=== PATIENT | female | born 1985 | race Two or more races ===

== ENCOUNTER 2018-12-01 21:04 | Emergency (ER) | payer OTHER ==
[2018-12-01 21:28] VITALS: BP 122/70; PULSE 96; TEMP 99.3; BMI 36.1
[2018-12-01] MEDS ORDERED: DIPHTH,PERTUSS(ACELL),TET 0.5 ML DISP.SYRIN IM ONE ×2 (21:31→21:32)
[2018-12-01] MEDS ORDERED: SILVER SULFADIAZINE 1% TOP CREAM 50 GM JAR TP ONE (21:37)
--- NOTE | 2018-12-01 23:56 | PDOC ---
Documentation entered by Betsy Mcgarry SCRIBE, acting as scribe for Anai Bravo MD. Anai Bravo MD: This documentation has been prepared by the scribe, Betsy Mcgarry SCRIBE, under my direction and personally reviewed by me in its entirety. I confirm that the documentation accurately reflects all work, treatment, procedures, and medical decision making performed by me. History of Present Illness - General Chief Complaint: Burn Stated Complaint: BURN History Source: Patient Exam Limitations: No Limitations - History of Present Illness Initial Comments: 12/01/18 21:40 The patient is a 33-year-old female, with no past medical history, who presents to the ED with a burn on her LT thigh. The patient sustained the burn 2 days ago while moving a wax warmer that tipped over on her leg. Since then the patient has noted blistering and states that the pain is worsening. She took Motrin with mild relief of her symptoms, last dose was at 9AM this morning. The patient denies any other injuries or symptoms. Allergies: NKA Past History - Past Medical History Allergies/Adverse Reactions: Allergies Allergy/AdvReac Type Severity Reaction Status Date / Time No Known Allergies Allergy Verified 12/01/18 21:08 Home Medications: Ambulatory Orders Paroxetine HCl [Paxil] 10 mg PO DAILY 12/01/18 Silver Sulfadiazine 1% Top Cr [Silvadene -] 1 applic TP DAILY #1 jar 12/01/18 Review of Systems - Review of Systems Able to Perform ROS?: Yes Comments:: 12/01/18 21:41 GENERAL/CONSTITUTIONAL: No fever or chills. No weakness. HEAD, EYES, EARS, NOSE AND THROAT: No change in vision. No ear pain or discharge. No sore throat. CARDIOVASCULAR: No chest pain or shortness of breath. RESPIRATORY: No cough, wheezing, or hemoptysis. GASTROINTESTINAL: No nausea, vomiting, diarrhea or constipation. GENITOURINARY: No dysuria, frequency, or change in urination. MUSCULOSKELETAL: No joint or muscle swelling or pain. No neck or back pain. SKIN: (+)Burn to LT thigh. NEUROLOGIC: No headache, vertigo, loss of consciousness, or change in strength/ sensation. ENDOCRINE: No increased thirst. No abnormal weight change. HEMATOLOGIC/LYMPHATIC: No anemia, easy bleeding, or history of blood clots. ALLERGIC/IMMUNOLOGIC: No hives or skin allergy. *Physical Exam - Vital Signs Last Vital Signs Temp Pulse Resp BP Pulse Ox 99.3 F 96 H 16 122/70 97 12/01/18 21:08 12/01/18 21:08 12/01/18 21:08 12/01/18 21:08 12/01/18 21:08 - Physical Exam Comments: 12/01/18 21:41 GENERAL: Awake, alert, and fully oriented, in no acute distress HEAD: No signs of trauma EXTREMITIES: Normal range of motion, no edema. No clubbing or cyanosis. No cords. NEUROLOGICAL: Cranial nerves II through XII grossly intact. Normal speech, SKIN: (+)Irregularly shaped, 10cm x 4cm, mildly erythematous/edematous area of the mid anterior left thigh. Small area of vesicles present within the wound. No confluence of vesicles seen. No edema, erythema, or tenderness seen beyond the wound in the anterior thigh and no edema or tenderness present in the posterior thigh. Warm, Dry, normal turgor. Medical Decision Making - Medical Decision Making As noted above, this 33-year-old woman, otherwise healthy, presents with area of burn of the left anterior thigh sustained 2 days ago when molten hot wax fell on the area. Since then, the patient has had persistent pain, especially when the burned areas are contacted by clothing or bed sheets. No history of fever/chills. No history of swelling/increased warmth or redness in the anterior thigh surrounding the burn or posterior thigh. Exam as noted. There are tiny areas of second-degree burn within the interval irregularly shaped superficial burn. There is no tenderness, increased warmth or erythema on exam of the anterior thigh or posterior thigh. Silvadene cream with coverage by large Telfa pad recommended 1-2 times a day for the next 5 days. She can take Tylenol or Motrin as needed for pain. She should plan on following up with her general medical doctor for wound check within the next 2-3 days If she has severe pain/redness or swelling in the leg or she develops fever/ chills, she should return to the ER *DC/Admit/Observation/Transfer Diagnosis at time of Disposition: Burn of thigh, left Qualifiers: Encounter type: initial encounter Burn degree: superficial (1st degree) Qualified Code(s): T24.112A - Burn of first degree of left thigh, initial encounter - Discharge Dispostion Disposition: HOME Condition at time of disposition: Stable - Prescriptions Prescriptions: Silver Sulfadiazine 1% Top Cr [Silvadene -] 1 applic TP DAILY #1 jar - Referrals - Patient Instructions Printed Discharge Instructions: DI for [facility] Additional Instructions: Silvadene cream/sterile pad to wound daily for the next 5 days Ibuprofen/naproxen/acetaminophen as needed for pain Return to ER or see your doctor if area is more red or swollen/more painful or you develop fever See her doctor in any case within the next 2-3 days for wound check - Post Discharge Activity
== END 2018-12-01 21:45 | disposition home or self-care (01) ==
LOC: FER 21:04
PROC: 3E0234Z Introduction of Serum, Toxoid and Vaccine into Muscle, Percutaneous Approach (ICD-10-PCS; principal; 2018-12-01)
DX: T24.112A Burn of first degree of left thigh, initial encounter (principal); X19.XXXA Contact with other heat and hot substances, initial encounter; Y92.89 Other specified places as the place of occurrence of the external cause
CPT/HCPCS: 90715; 99281-25